=== PATIENT | male | born 1995 | race Caucasian/White ===

== ENCOUNTER 2018-12-19 17:05 | Emergency (ER) | payer BC ==
[~2018-12-19] VITALS: Ht 177.8 cm; Wt 81.7 kg
[~2018-12-19 17:05] MED LIST: CEPH500 PO; HYDACE5325 PO
[2018-12-19] MEDS ORDERED: TRIDERM28.4 GM TOP (17:34)
[2018-12-19] MEDS ORDERED: CLARITIN10 MG PO (17:34)
== END 2018-12-19 17:54 | disposition home or self-care (01) ==
LOC: ER 17:05
DX: R21 Rash and other nonspecific skin eruption (principal)
CPT/HCPCS: 99282

== ENCOUNTER 2019-09-16 19:02 | Emergency (ER) | payer OTHER ==
[~2019-09-16] VITALS: Ht 177.8 cm; Wt 81.7 kg
[~2019-09-16 19:02] MED LIST changes: +CLARITIN10 MG PO; +TRIDERM28.4 GM TOP
== END 2019-09-16 20:39 | disposition home or self-care (01) ==
LOC: ER 19:02
DX: S05.11XA Contusion of eyeball and orbital tissues, right eye, initial encounter (principal); Z23 Encounter for immunization; Z79.899 Other long term (current) drug therapy; W22.8XXA Striking against or struck by other objects, initial encounter
CPT/HCPCS: 90471; 90714; 99282

== ENCOUNTER → 2022-07-05 | Outpatient (CLI) | payer OTHER | END | disposition home or self-care (01) | LOC: LAB SHORT 11:15 | DX: J02.9 Acute pharyngitis, unspecified (principal) | CPT/HCPCS: 87081 ==